=== PATIENT | female | born 1960 | race Caucasian/White ===

== ENCOUNTER 2018-05-24 15:00 | Outpatient (CLI) | payer BC, SELFPAY ==
--- NOTE | 2018-05-24 15:08 | DI.RAD_ITS ---
SYMPTOM/DIAGNOSIS: LEFT HIP PAIN LEFT HIP: 05/24 Two views of the hip and pelvis were obtained. There is mild narrowing of the cartilaginous joint space of the left hip superiorly with mild subchondral sclerosis of the acetabulum. The femoral head appears intact. No other significant bony abnormality seen. CONCLUSION: Mild DJD left hip. Mild DJD of the right hip noted as well.
== END 2018-05-24 15:20 ==
PROVIDERS: PCP Family Medicine; Visit Provider Physician Assistant
DX: M25.552 Pain in left hip (principal); M16.12 Unilateral primary osteoarthritis, left hip
CPT/HCPCS: 73502

== ENCOUNTER 2018-10-04 01:09 | Outpatient (CLI) | payer BC, SELFPAY ==
--- NOTE | 2018-10-04 15:03 | DI.MRI_ITS ---
SYMPTOM/DIAGNOSIS: EVALUATE RECALCITRANT LT HIP BURSITIS, ? TEAR, PAIN WALKING UP STAIRS,M70.62 LEFT HIP MRI: MRI examination of the hip was performed according to the usual protocol. No bony signal abnormality is seen. No muscular, ligamentous or tendinous signal abnormality is seen. No fluid collection of the region of the hip. No evidence of adenopathy or pelvic mass. CONCLUSION: Negative hip MRI.
== END 2018-10-04 01:29 ==
PROVIDERS: PCP Family Medicine; Visit Provider Student in an Organized Health Care Education/Training Program
DX: M70.62 Trochanteric bursitis, left hip (principal)
CPT/HCPCS: 73721

== ENCOUNTER 2018-10-21 09:36 | Day surgery (SDC) | payer BC, SELFPAY ==
[2018-10-21] VITALS (10 sets, daily range): BP systolic 139–183; BP diastolic 72–96; PULSE 54–68; RESP 10–20; TEMP 35.6–36.2; O2SAT 93–100
[2018-10-21] MEDS: Lactated Ringers 1,000 ML 80 ML IV ×2 (10:45→13:58)
[2018-10-21] MEDS: ceFAZolin 2 GM/50 ML BAG IVPB (12:24)
[2018-10-21] MEDS: Bupivacaine 0.25% Pres-Free 30 ML VIAL (12:52)
--- NOTE | 2018-10-21 12:58 | PDOC.DSDIS_ITS ---
Discharge Plan Disposition Patient Disposition: HOME Condition: Good Discharge Details Reason For Visit: (L) TROCHANTRIC BURSITIS Attending Provider: Shashank Castellon Primary Care Provider: Eunice Napier Home Meds and New Rx's Prescriptions: New acetaminophen 500 mg tablet 1,000 mg PO Q8H PRN (Reason: pain) Qty: 90 RF: 3 hydrocodone-acetaminophen 5-325 mg tablet 1 tab PO Q4H PRN (Reason: pain) Qty: 14 RF: 0 ibuprofen 600 mg tablet 600 mg PO TID PRNQty: 60 RF: 3 Continued oxymetazoline [Afrin (oxymetazoline)] 15 ML spray,non-aerosol 1 spray NS BID PRNRF: 0 diphenhydramine HCl 25 MG capsule 50 mg PO HS RF: 0 Lactaid 3,000 UNIT tablet,chewable 3,000 unit PO PRN RF: 0 polyvinyl alcohol [Artificial Tears (polyvin alc)] 15 ML drops 2 drp OU BID PRNRF: 0 cholecalciferol (vitamin D3) [Vitamin D3] 1,000 UNIT capsule 1,000 unit PO HS Qty: 100 RF: 4 gabapentin 600 MG tablet 600 mg PO HS Qty: 90 RF: 4 cetirizine [Zyrtec] 10 MG tablet 10 mg PO DAILY Qty: 90 RF: 4 albuterol sulfate [Proventil HFA] 6.7 GM HFA aerosol inhaler 2 puff Inhalation Q4H PRN Qty: 3 RF: 4 fluticasone propionate 16 GM spray,suspension 2 spr NS DAILY Qty: 3 RF: 4 Symbicort 10.2 GM HFA aerosol inhaler 2 puff Inhalation DAILY Qty: 3 RF: 4 omeprazole 40 MG capsule,delayed release(DR/EC) 40 mg PO HS Qty: 30 RF: 3 ropinirole 3 MG tablet 3 mg PO HS RF: 0 bupropion HCl 75 MG tablet 75 mg PO HS RF: 0 Culturelle 10 billion cell Capsule 1 cap PO DAILY RF: 0 Cbd 10 mg PO HS RF: 0 Restasis 0.05 % Dropperette 1 drp OPHTHALMIC (EYE) BID RF: 0 diclofenac sodium 1 % Gel PRNRF: 0 Discontinued acetaminophen [Tylenol Extra Strength] 500 MG/15 ML liquid 1,000 mg PO TID PRN RF: 0 ibuprofen 400 mg Tablet 400 mg PO BID PRNRF: 0 Discharge Instructions Additional Instructions: Activity: You may move and walk as tolerated but always use two crutches or a walker until instructed otherwise. You should try to take short walks a few times a day. You have no restrictions on movement or positioning, but do not try to force what you do. You will find some stiffness and weakness. Do not try to strengthen this too early, continue to practice walking. - Outpatient physical therapy can be helpful to help return you to a normal gait and improve your flexibility and strength. This can start around 2 weeks. For some patients, it?s not necessary. Usually this is determined at the time of discharge or at the first post-operative visit. Dressing: Keep the surgical dressing in place for at least one week. After the first week it may be removed and replace with light gauze and tape or nothing. It may get wet after 3 days but avoid soaking the dressing. If it gets wet, just lightly pat dry. Medications: - You should take Tylenol and an anti-inflammatory Ibuprofen as your primary pain control medications. Do NOT exceed 4000mg of Tylenol in one day. - You have been prescribed a stronger pain medication Hydrocodone for breakthrough pain, take as needed as prescribed. - If you have constipation you should take Colace or Miralax (both over-the- counter). It takes most people 3-4 days to have a bowel movement. Follow-up: 2 weeks Referrals: Shashank Castellon MD [ [facility] STAFF PHYSICIAN] - Equipment/Supplies: Partial Weight Bearing Crutches Activity:: Activity as Tolerated Remove Dressings/Wound Care:: 72 hours Shower/Bathe:: 72 hours Diet:: As Tolerated Discharge Orders Discharge Orders: Discharge Order (Routine); Ordered 10/21/18 Ordered By: Shashank Castellon DS: Diagnosis Discharge Diagnosis (1) Trochanteric bursitis, left hip: Status: Acute
[2018-10-21] MEDS: fentaNYL 100 MCG/2 ML VIAL IVP ×2 (13:25→13:30)
[2018-10-21] MEDS: HYDROmorphone 2 MG/ML VIAL IVP ×2 (14:13→14:34)
[2018-10-21] MEDS: Normal Saline Flush 10 ML SYR IV (14:13)
[2018-10-21] MEDS: HYDROcodone 5/Acetaminophen 325 TAB PO (15:16)
--- NOTE | 2018-10-21 19:07 | W.PM.OP ---
Date of service: 10/21/18 Time of Service: 13:52 Operative Note DATE OF PROCEDURE: 10/21/18 PRE-OP DIAGNOSIS: Left Recalcitrant Trochanteric Bursitis POST-OP DIAGNOSIS: same PROCEDURE: Open Debridement/Excision of LEFT Trochanteric Bursa and Iliotibial Band Lengthening SURGEON: Shashank Castellon WIRE LOOP MACHINE OPERATOR: Quique Willis ANESTHESIA: GETA ESTIMATED BLOOD LOSS: 50 PATHOLOGY: none sent COMPLICATIONS: None Patient was transported to: PACU Patient's condition: stable Indications: Corrie is a 58-year-old female who I have seen for recurrent symptoms of lateral hip pain. A diagnosis of trochanteric bursitis was made. Conservative treatment options were employed first. However, pain continued. After failure of conservative treatment options, I recommended surgical intervention. I reviewed the technical details of the surgery. I reviewed the risk of the surgery to include bleeding, infection, pain, stiffness, damage to nerves and vessels, damage to muscles and tendons, blood clot. Despite these risks, the patient desired to proceed. Findings: The iliotibial band was significantly tight. The bursa was inflamed and excised and debrided. Iliotibial band was lengthened with a cruciate style tenotomy. Procedure Description: Corrie was greeted in the preoperative holding area. The identity was confirmed with the correct site and side. The consent was reviewed with the patient and signed. History and physical was updated. The patient was taken back to the operating room. A general anesthetic was administered. The patient was then positioned into the right lateral decubitus position for access to the left hip. All bony prominences well-padded. The left hip was prepped with ChloraPrep and draped in a standard fashion. Prophylactic antibiotics in the form of cefazolin were administered. A timeout was performed for safe surgery. An approximately 10 cm incision was made overlying the posterior lateral hip. This was centered over the vastus ridge extending just proximal to the tip of the greater trochanter. The skin was incised sharply. Bleeding was stopped with light cautery. The iliotibial band was identified and cleared for better visualization. It was noted to be quite taut against the lateral femur. The iliotibial band was then incised longitudinally extending into the gluteus fascia and extending distally along the IT band. This was split bluntly and a Charnley retractor was inserted. We had excellent visualization of the lateral femur and the trochanteric bursa. There was notable bursitis with an enlarged and inflamed bursa. This was excised sharply with electrocautery and remnants debrided with a rongeur. Once this was fully removed we had excellent visualization of the insertion of the abductor tendons. They were inspected both visually and by palpation on both the lateral and medial surfaces. There is no notable tearing of the abductor tendons. There was a small bony prominence just distal to the insertion of the posterior aspect of the gluteus medius tendon. This was debrided down and smoothed. The deep structures were then thoroughly irrigated. The deep tissues were injected with a mixture of 0.5% bupivacaine and 20 cc of Exparel L. The iliotibial band was then closed with a #1 Vicryl. Once the longitudinal split was closed completely the point of maximal tightness was incised transversely. This was done between sutures allowing for some the longitudinal split open as well creating a cruciate style tenotomy for lengthening. Once again the deep tissues and iliotibial band were injected with the remainder of the bupivacaine Exparel cocktail. The wound was thoroughly irrigated. The deep tissues were closed with 0 Vicryl followed by 2-0 Vicryl. The skin was closed with a 4-0 Monocryl in a running subcuticular fashion which was reinforced with skin glue and Steri-Strips. The wound was dressed with Mepilex silver dressing. At the end of the case all counts are correct. The patient was transitioned back into the supine position. There were no notable complications. The patient was transferred to the PACU in stable condition.
--- NOTE | 2018-10-21 19:17 | ROE_ITS ---
Date of service: 10/21/18 Time of Service: 13:52 Operative Note DATE OF PROCEDURE: 10/21/18 PRE-OP DIAGNOSIS: Left Recalcitrant Trochanteric Bursitis POST-OP DIAGNOSIS: same PROCEDURE: Open Debridement/Excision of LEFT Trochanteric Bursa and Iliotibial Band Lengthening SURGEON: Shashank Castellon CONTRACTOR GENERAL BUILDING: Quique Willis ANESTHESIA: GETA ESTIMATED BLOOD LOSS: 50 PATHOLOGY: none sent COMPLICATIONS: None Patient was transported to: PACU Patient's condition: stable Indications: Corrie is a 58-year-old female who I have seen for recurrent symptoms of lateral hip pain. A diagnosis of trochanteric bursitis was made. Conservative treatment options were employed first. However, pain continued. After failure of conservative treatment options, I recommended surgical inter vention. I reviewed the technical details of the surgery. I reviewed the risk of the surgery to include bleeding, infection, pain, stiffness, damage to nerves and vessels, damage to muscles and tendons, blood clot. Despite these risks, the patient desired to proceed. Findings: The iliotibial band was significantly tight. The bursa was inflamed and excised and debrided. Iliotibial band was lengthened with a cruciate style tenotomy. Procedure Description: Corrie was greeted in the preoperative holding area. The identity was confirmed with the correct site and side. The consent was reviewed with the patient and signed. History and physical was updated. The patient was taken back to the operating room. A general anesthetic was administered. The patient was then positioned into the right lateral decubitus position for access to the left hip. All bony prominences well-padded. The l eft hip was prepped with ChloraPrep and draped in a standard fashion. Prophylactic antibiotics in the form of cefazolin were administered. A timeout was performed for safe surgery. An approximately 10 cm incision was made overlying the posterior lateral hip. This was centered over the vastus ridge extending just proximal to the tip of the greater trochanter. The skin was incised sharply. Bleeding was stopped with light cautery. The iliotibial band was identified and cleared for better visualization. It was noted to be quite taut against the lateral femur. The iliotibial band was then incised longitudinally extending into the gluteus fascia and extending distally along the IT band. This was split bluntly and a Charnley retractor was inserted. We had excellent visualization of the lateral femur and the trochanteric bursa. There was notable bursitis with an enlarged and inflamed bursa. This was excised sharply with electrocautery and remnants debrided with a rongeur. Once this was fully removed we had excellent visualization of the insertion of the abductor tendons. They were inspected both visually and by palpation on both the lateral and medial surfaces. There is no notable tearing of the abductor tendons. There was a small bony prominence just distal to the insertion of the posterior aspect of the gluteus medius tendon. This was debrided down and smoothed. The deep structures were then thoroughly irrigated. The deep tissues were injected with a mixture of 0.5% bupivacaine and 20 cc of Exparel L. The iliotibial band was then closed with a #1 Vicryl. Once the longitudinal split was closed completely the point of maximal tightness was incised transversely. This was done between sutures allowing for some the longitudinal split open as well creating a cruciate style tenotomy for lengthening. Once again the deep tissues and iliotibial band were injected with the remainder of the bupivacaine Exparel cocktail. The wound was thoroughly irrigated. The deep tissues were closed with 0 Vicryl followed by 2-0 Vicryl. The skin was closed with a 4-0 Monocryl in a running subcuticular fashion which was reinforced with skin glue and Steri-Strips. The wound was dressed with Mepilex silver dressing. At the end of the case all counts are correct. The patient was transitioned back into the supine position. There were no notable complications. The patient was transferred to the PACU in stable condition.
== END 2018-10-21 16:13 | disposition home or self-care (01) ==
PROVIDERS: PCP Family Medicine; Visit Provider Student in an Organized Health Care Education/Training Program
PROC: (CPT 27062; principal; 2018-10-21 11:15)
DX: M70.62 Trochanteric bursitis, left hip (principal); M25.552 Pain in left hip
CPT/HCPCS: 27062; 27305; J0131; J0690; J1100; J1200; J1885; J2250; J2405; J3010

== ENCOUNTER 2019-01-24 15:23 | Outpatient (CLI) | payer BC, SELFPAY ==
--- NOTE | 2019-01-24 15:11 | DI.RAD_ITS ---
SYMPTOM/DIAGNOSIS: LEG PAIN LEFT ANKLE: Three views. The ankle joint is well maintained. The bones are intact and normally mineralized. There is a small spur at the plantar surface of the calcaneus. There is a small enthesophyte at the Achilles insertion on to the calcaneus. IMPRESSION: No acute abnormality.
--- NOTE | 2019-01-24 15:11 | DI.RAD_ITS ---
SYMPTOM/DIAGNOSIS: FOOT PAIN RIGHT FOOT: Three views. There are mild degenerative changes seen in the right foot. No acute fracture or dislocation is seen. No suspicious lytic or sclerotic lesion or periosteal reaction is identified. There is an old healed fracture of the distal right fibula. IMPRESSION: No acute abnormality.
--- NOTE | 2019-01-24 15:11 | DI.RAD_ITS ---
SYMPTOM/DIAGNOSIS: LEG PAIN LEFT KNEE: Three views. No bone, joint or soft tissue abnormality is identified.
== END 2019-01-24 15:43 ==
PROVIDERS: PCP Family Medicine; Visit Provider Physician Assistant
DX: M79.605 Pain in left leg (principal); M79.672 Pain in left foot; M25.562 Pain in left knee; M25.572 Pain in left ankle and joints of left foot; M77.32 Calcaneal spur, left foot; M79.671 Pain in right foot; Z87.81 Personal history of (healed) traumatic fracture
CPT/HCPCS: 73562; 73610; 73630